=== PATIENT | female | born 1990 | race Caucasian/White ===

== ENCOUNTER 2016-12-27 16:21 | Day surgery (SDC) | payer SELFPAY ==
--- NOTE | 2016-12-27 16:37 | PCM.PREANE ---
Preanesthetic Assessment - Procedure Proposed Procedure: laparoscopic appendectomy - Anesthesia/Transfusion/Family Hx Anesthesia History: Prior Anesthesia Without Reaction ( 2 yr ago in [place]) Other Type of Anesthesia Reaction Comment: states "they had to give me more anesthesia with my c/section" Family History of Anesthesia Reaction: No Transfusion History: No Prior Transfusion(s) Intubation History: Unknown - Review of Systems General: Other (NPO and with abdominal pain) Pulmonary: Other (smoker (limited)) Cardiovascular: No Symptoms Gastrointestinal: Abdominal pain (RLQ) Neurological: No Symptoms Other: Reports: None - Physical Assessment NPO Status Date: 12/26/16 NPO Status Time: 22:00 Height: 4 ft 11 in Weight: 157 lb ASA Class: 2E Mental Status: Alert & Oriented x3 Airway Class: Mallampati = 1 Dentition: Reports: Normal Dentition Thyro-Mental Finger Breadths: 3 Mouth Opening Finger Breadths: 3 ROM/Head Extension: Full Lungs: Clear to auscultation, Normal respiratory effort Cardiovascular: Regular Rate, Regular Rhythm, No Murmurs - Allergies Allergies/Adverse Reactions: Allergies Allergy/AdvReac Type Severity Reaction Status Date / Time No Known Allergies Allergy Verified 02/04/15 09:51 - Blood Blood Available: No Product(s) Available: None - Anesthesia Plan Pre-Op Medication Ordered: None - Acknowledgements Anesthesia Type Planned: General Anesthesia (OET) Pt an Appropriate Candidate for the Planned Anesthesia: Yes Alternatives and Risks of Anesthesia Discussed w Pt/Guardian: Yes Pt/Guardian Understands and Agrees with Anesthesia Plan: Yes PreAnesthesia Questionnaire - Past Health History Medical/Surgical History: Denies Medical/Surgical History Genitourinary History: Reports: None 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 [No Known Home Meds] 12/27/16 [History]
[2016-12-27] MEDS ORDERED: Bupivacaine 0.5% 30 ML SDV ONE (16:40)
[2016-12-27] MEDS ORDERED: ceFAZolin 1 GM Vial ONE (16:40)
[2016-12-27] MEDS ORDERED: Lactated Ringers 1,000 ML IV SCH ×2 (17:00→18:30)
[2016-12-27] MEDS ORDERED: cefOXitin 2 GM in Premix Bag 1 BAG IV ONE (17:07)
[2016-12-27] MEDS ORDERED: Sugammadex Sodium 200 MG/2 ML VIAL IV ONE (18:20)
[2016-12-27] MEDS ORDERED: Acetaminophen/HYDROcodone 325-5 MG Tab PO PRN (18:21)
--- NOTE | 2016-12-27 18:24 | PCM.OPNOTE ---
- General Post-Op/Procedure Note Date of Surgery/Procedure: 12/27/16 Operative Procedure(s): Laparoscopic appendectomy Pre Op Diagnosis: Acute abdomen Post-Op Diagnosis: Acute nonruptured appendicitis Anesthesia Technique: General ET tube (ASA IIE) Primary Surgeon: Khari Ramirez Fluid Replacement, Intraop: 1,500 EBL in mLs: 5 Condition: Good Free Text/Narrative:: Dictation [id number]
[2016-12-27] MEDS ORDERED: Metoclopramide 10 MG/2 ML SDV IVPUSH SCH (18:30)
--- NOTE | 2016-12-27 18:51 | PCM.POSTAN ---
POST ANESTHESIA ASSESSMENT - MENTAL STATUS Mental Status: alert, oriented - RESPIRATORY Respiratory Status: respiratory rate WNL, airway patent, O2 saturation stable - CARDIOVASCULAR CV Status: pulse rate WNL, blood pressure stable - GASTROINTESTINAL GI Status: no symptoms - POST OP HYDRATION Hydration Status: adequate & stable
--- NOTE | 2016-12-27 19:31 | PCM48HPAN ---
Post Anesthesia Note - EVALUATION WITHIN 48HRS OF ANESTHETIC Vital Signs in Normal Range: Yes Patient Participated in Evaluation: Yes Respiratory Function Stable: Yes Airway Patent: Yes Cardiovascular Function Stable: Yes Hydration Status Stable: Yes Pain Control Satisfactory: Yes Nausea and Vomiting Control Satisfactory: Yes Mental Status Recovered: Yes
[2016-12-27] MEDS ORDERED: Acetaminophen/HYDROcodone 325-5 MG Tab ONE (20:50)
[2016-12-27 23:48] VITALS: BP 94/56
--- NOTE | 2016-12-28 00:01 | OR ---
SURGEON: Khari Ramirez M.D. DATE OF PROCEDURE: 12/27/2016 OPERATION PERFORMED: Laparoscopic appendectomy. ANESTHESIA: General endotracheal. ASA CLASSIFICATION: IIE. PREOPERATIVE DIAGNOSIS: Acute abdomen. POSTOPERATIVE DIAGNOSIS: Acute nonruptured appendicitis. ESTIMATED BLOOD LOSS: 5 mL. INTRAOPERATIVE FLUID REPLACEMENT: 1500 mL of crystalloid. DESCRIPTION OF PROCEDURE: The patient was taken to the operating room, placed on the operating table in the supine position. Time-out was called for appropriate identification of the patient and procedure. Thigh-high TEDs and sequential compression boots were placed. Following satisfactory attainment of general endotracheal anesthesia, a Martinez catheter was placed in the patient's urinary bladder. The abdomen was then prepped with DuraPrep solution and sterile drapes were applied. The skin just above the umbilicus was infiltrated with 0.5% Marcaine solution. The skin incision was made and deepened through the subcutaneous tissue. The Veress needle was introduced into the peritoneal cavity. Saline drop test was positive. Following satisfactory attainment of a pneumoperitoneum with the release set at 13 cm of water, the patient was positioned with her head down and rolled to the left. The patient did have adhesions from the previous to the anterior abdominal wall. Therefore, our position for the 12 mm trocar had to be moved superiorly into the right. Once a satisfactory site had been obtained and identified, the skin was infiltrated with 1% Xylocaine and another skin incision was made. Hemostasis obtained again with the use of electrocautery. Under camera vision, the 12 mm port was introduced. The appendix was then identified and was acutely inflamed. However, there was no evidence of rupture of purulent intraperitoneal content. A 5 mm left lower quadrant port was placed again under camera vision with local infiltration of the skin with 0.5% Marcaine solution. The appendix was now grasped and the mesoappendix was taken down with the Harmonic scalpel. Because of involvement of the base of the appendix, it was elected to use an Endo-JOSUÉ stapler with the blue load staple. This was introduced into the peritoneal cavity and positioned around the base of the appendix with care taken not to incorporate the cecum and to identify appropriate position of the tip of the instrument not to include any adjacent organs. The stapler was then fired and the appendix was amputated. It was immediately placed in an Endopouch and secured intraperitoneally. The right lower quadrant was then inspected for hemostasis. No bleeding was noted. The right lower quadrant was irrigated with several 100 mL of sterile saline solution. All fluid was aspirated. The staple line appeared intact and showed no evidence of spill nor any leakage. The patient was now positioned in neutral position. The pelvis was then inspected. I did not see any evidence of pelvic inflammatory disease nor any evidence of an ovarian cyst or blood in the pelvis. The 12 mm port was removed removing the Endopouch containing appendix under camera vision. Again, under camera vision, the 5 mm left lower quadrant port was removed and finally, the supraumbilical camera port was removed. The wounds were inspected for hemostasis. No bleeding was noted. The subcutaneous tissue for the supraumbilical and right lower quadrant port incisions were closed with 3-0 Polysorb. All incisions were closed with subcuticular 4-0 Monocryl and dressed with Steri-Strips and Tegaderm pads. Prior to emergence from anesthesia and extubation, the Martinez catheter was removed. Following emergence from anesthesia and extubation, the patient was taken to the recovery room in satisfactory condition. KAMLA PEACOCK /[id number]
== END 2016-12-27 21:20 | disposition home or self-care (01) ==
LOC: MW.SDS 16:21
PROVIDERS: ATTEND Surgery
PROC: 0DTJ4ZZ Resection of Appendix, Percutaneous Endoscopic Approach (ICD-10-PCS; principal; 2016-12-27)
DX: K35.80 Unspecified acute appendicitis (principal); F17.200 Nicotine dependence, unspecified, uncomplicated; Z79.899 Other long term (current) drug therapy; Z86.59 Personal history of other mental and behavioral disorders; Z98.890 Other specified postprocedural states
CPT/HCPCS: 44970; A9270; 00840; 88304; J0690

== ENCOUNTER 2018-05-22 09:44 | Day surgery (SDC) | payer MEDICAID ==
[~2018-05-22 09:44] MED LIST: Lactated Ringers 1,000 ML IV SCH; Sodium Chloride 0.9% 10 ML Syringe FLUSH PRN; Sodium Chloride 0.9% 2.5 ML Syringe FLUSH PRN; ceFAZolin 1 GM in Premix Bag 1 BAG IV ONE
[2018-05-22] MEDS ORDERED: fentaNYL 250 MCG/5 ML SDV ONE (10:20)
[2018-05-22] MEDS ORDERED: Midazolam 1 MG/ML 2 ML SDV ONE (10:20)
[2018-05-22] MEDS ORDERED: Ondansetron 4 MG/2 ML SDV ONE (10:20)
[2018-05-22] MEDS ORDERED: Propofol 200 MG/20 ML SDV ONE (10:20)
[2018-05-22] MEDS ORDERED: Lidocaine 2% 5 ML SDV ONE (10:20)
[2018-05-22] MEDS ORDERED: Furosemide 40 MG/4 ML VIAL ONE (10:40)
--- NOTE | 2018-05-22 11:11 | PCM.PREANE ---
Preanesthetic Assessment - Procedure Proposed Procedure: Hysteroscopy, D & C - Anesthesia/Transfusion/Family Hx Anesthesia History: Prior Anesthesia Without Reaction Other Type of Anesthesia Reaction Comment: states "they had to give me more anesthesia with my c/section" Family History of Anesthesia Reaction: No Transfusion History: No Prior Transfusion(s) Intubation History: Unknown - Review of Systems General: Fatigue, Other (blood loss due to MAB) Pulmonary: No Symptoms, Other (intermittent smoker) Cardiovascular: No Symptoms Gastrointestinal: No Symptoms Neurological: No Symptoms - Physical Assessment NPO Status Date: 05/21/18 NPO Status Time: 22:00 O2 Sat by Pulse Oximetry: 97 Respiratory Rate: 16 Vital Signs: Last Vital Signs Temp 97.9 F 05/22/18 11:04 Pulse 65 05/22/18 11:04 Resp 16 05/22/18 11:04 BP 103/65 05/22/18 11:04 Pulse Ox 97 05/22/18 11:04 Height: 5 ft Weight: 134 lb ASA Class: 2 Mental Status: Alert & Oriented x3 Airway Class: Mallampati = 2 Dentition: Reports: Normal Dentition Thyro-Mental Finger Breadths: 3 Mouth Opening Finger Breadths: 3 ROM/Head Extension: Full Lungs: Clear to Auscultation, Normal Respiratory Effort Cardiovascular: Regular Rate, Regular Rhythm, No Murmurs - Allergies Allergies/Adverse Reactions: Allergies Allergy/AdvReac Type Severity Reaction Status Date / Time No Known Allergies Allergy Verified 05/17/18 16:21 - Blood Blood Available: Yes Product(s) Available: PRBC (T and S) - Anesthesia Plan Pre-Op Medication Ordered: None - Acknowledgements Anesthesia Type Planned: General Anesthesia (LMA vs OET) Pt an Appropriate Candidate for the Planned Anesthesia: Yes Alternatives and Risks of Anesthesia Discussed w Pt/Guardian: Yes Pt/Guardian Understands and Agrees with Anesthesia Plan: Yes PreAnesthesia Questionnaire - Past Health History Medical/Surgical History: Denies Medical/Surgical History HEENT History: Reports: Other (See Below) Other HEENT History: wears glasses Cardiovascular History: Reports: None Respiratory History: Reports: None Gastrointestinal History: Reports: None Genitourinary History: Reports: None 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 (See Below) Other OB/BYN History: recent miscarriage Musculoskeletal History: Reports: None Neurological History: Reports: None Psychiatric History: Reports: None Endocrine/Metabolic History: Reports: None Hematologic History: Reports: None Immunologic History: Reports: None Oncologic (Cancer) History: Reports: None Dermatologic History: Reports: None - Past Surgical History Head Surgeries/Procedures: Reports: None GI Surgical History: Reports: Appendectomy Female Surgical History: Reports: Section - SUBSTANCE USE Smoking Status *Q: Current Some Day Smoker Tobacco Use Within Last Twelve Months: Cigarettes Recreational Drug Use History: No - HOME MEDS Home Medications: Home Meds Doxycycline [Vibramycin] 100 mg PO BID 05/17/18 [History] - CURRENT (IN HOUSE) MEDS Current Meds: Current Medications Lactated Ringer's (Ringers, Lactated) 1,000 mls @ 125 mls/hr IV ASDIRECTED [facility]IAN[facility] Sodium Chloride (Saline Flush) 10 ml FLUSH ASDIRECTED PRN PRN Reason: Keep Vein Open Sodium Chloride (Saline Flush) 2.5 ml FLUSH ASDIRECTED PRN PRN Reason: Keep Vein Open Discontinued Medications Fentanyl (Sublimaze) Confirm Administered Dose 250 mcg .ROUTE .STK-MED ONE Stop: 05/22/18 10:21 Furosemide (Lasix) Confirm Administered Dose 40 mg .ROUTE .STK-MED ONE Stop: 05/22/18 10:41 Cefazolin Sodium/Dextrose 1 gm (/ Premix) 50 mls @ 100 mls/hr IV ONETIME ONE Stop: 05/22/18 09:29 Lidocaine (Xylocaine-Mpf 2%) Confirm Administered Dose 5 ml .ROUTE .STK-MED ONE Stop: 05/22/18 10:21 Midazolam HCl (Versed 1 Mg/Ml) Confirm Administered Dose 2 mg .ROUTE .STK-MED ONE Stop: 05/22/18 10:21 Ondansetron HCl (Zofran) Confirm Administered Dose 4 mg .ROUTE .STK-MED ONE Stop: 05/22/18 10:21 Propofol (Diprivan 20 Ml) Confirm Administered Dose 200 mg .ROUTE .STK-MED ONE Stop: 05/22/18 10:21
[2018-05-22] MEDS ORDERED: Ketorolac 30 MG/ML SDV ONE (13:06)
[2018-05-22] MEDS ORDERED: Rocuronium 10 MG/ML 10 ML Syringe ONE (13:26)
[2018-05-22] MEDS ORDERED: ePHEDrine 50 MG/ML SDV ONE (13:50)
[2018-05-22] MEDS ORDERED: Sugammadex Sodium 200 MG/2 ML VIAL ONE (14:10)
[2018-05-22] MEDS ORDERED: fentaNYL 100 MCG/2 ML SDV IVPUSH PRN (14:45)
[2018-05-22] MEDS ORDERED: fentaNYL 100 MCG/2 ML SDV ONE (15:28)
[2018-05-22] MEDS ORDERED: Bupivacaine 0.5% 30 ML SDV ONE (15:49)
[2018-05-22] MEDS ORDERED: Lactated Ringers 1,000 ML IV SCH (16:00)
--- NOTE | 2018-05-22 16:15 | PCM.OPNOTE ---
- General Post-Op/Procedure Note Date of Surgery/Procedure: 05/22/18 Operative Procedure(s): 1) Hysteroscopy with removal of retained products. 2) Diagnostic Laparoscopy Findings: Accurate appearing uterus. Suspected products of conception located within the right cornua and the posterior uterine wall. Posterior uterine wall perforation located towards the right cornua- hemostatic. Surgicell placed over the area. No bowl injury or perforation visualized by Dr Gardner who ran the bowl laparoscopically. Please refer to her documentation for details Pre Op Diagnosis: 1) Suspected retained Products of conception following 15 weeks spontaneous misscarriage Post-Op Diagnosis: Same. 2) Uterine perforation Anesthesia Technique: General ET Tube Primary Surgeon: Morelia Qiuntana Optical Worker: Hill Pathology: Products of conception Suspected Bowel Epipolic Fluid Replacement, Intraop: 3,100 Output, Urine Amount: 200 EBL in mLs: 80 Complications: see above Condition: Good Free Text/Narrative:: Intraoperative consult by Dr Gardner
--- NOTE | 2018-05-22 16:20 | PCM.POSTAN ---
POST ANESTHESIA ASSESSMENT - MENTAL STATUS Mental Status: Alert, Oriented - RESPIRATORY Respiratory Status: Respiratory Rate WNL, Airway Patent, O2 Saturation Stable - CARDIOVASCULAR CV Status: Pulse Rate WNL, Blood Pressure Stable - GASTROINTESTINAL GI Status: No Symptoms - PAIN Pain Score: 4 (fentanyl given in PAR) - POST OP HYDRATION Hydration Status: Adequate & Stable
--- NOTE | 2018-05-22 16:35 | PCM48HPAN ---
Post Anesthesia Note - EVALUATION WITHIN 48HRS OF ANESTHETIC Vital Signs in Normal Range: Yes Patient Participated in Evaluation: Yes Respiratory Function Stable: Yes Airway Patent: Yes Cardiovascular Function Stable: Yes Hydration Status Stable: Yes Pain Control Satisfactory: Yes Nausea and Vomiting Control Satisfactory: Yes Mental Status Recovered: Yes Resp Rate: 14
[2018-05-22] MEDS: Acetaminophen/oxyCODONE 325-5 MG Tab PO PRN (17:31)
--- NOTE | 2018-05-22 17:39 | OR ---
SURGEON: GILMER NUNEZ MD DATE OF PROCEDURE: 05/22/2018 PROCEDURE IN DETAIL: I was called to the operating room due to a uterine perforation during a D & C. During the procedure fat was noticed on the curette. The case was stopped and the c web developer placed an infraumbilical and left lower quadrant 5 mm port. I was intraoperatively consulted and entered the case at this point in time. Using a 5 mm 30-degree scope, I looked underneath the uterus. There had been bleeding associated with the perforation but a piece of surgicel was on the posterior fundus of the uterus and the field was hemostatic. There was a small piece of traumatized fat attached to the rectum. This correlated with the area of perforation in the uterus. I closely inspected the rectum to the pelvic floor. There was no evidence of fecal contamination or gross perforation of the rectal wall. Using atraumatic graspers, I inspected the rectum on all sides. There was no evidence of any damage. I then inspected the sigmoid colon as it came out of the pelvis. This appeared to be intact with no evidence of perforation. I examined the remainder of the colon and the abdominal organs. They appeared normal. A 5 mm port was placed under direct visualization in the left upper quadrant to allow me to run the small bowel. I identified the cecum and terminal ileum. The small bowel was run in hand over hand fashion from distal to proximal until I was proximal to the ligament of Treitz. No damage to the small bowel or its mesentery was identified. I then broke sterile, went below the drapes and turned my attention to the anus. A digital rectal exam was performed. This exam was normal. I could see myself palpating the rectum via the laparoscope. My finger was able to reach the area of traumatized epiploia. The rectal vault had no stool in it. I then placed a well lubricated bivalve proctoscope into the rectum. The rectal mucosa appeared healthy with no signs of perforation. There was no evidence of any bleeding. I copiously irrigated the rectum. There was no evidence of irrigant fluid going into the pelvis. After this thorough inspection, it was conculded that there was no evidence any damage to any other intra-abdominal organs other than a small traumatized piece of emani-rectal fat. Please see Dr. Quintana's note for further details in the case. KIM / AYUSH /[id number] BARON
[2018-05-22] MEDS ORDERED: Ondansetron 4 MG/2 ML SDV IVPUSH PRN (18:54)
--- NOTE | 2018-05-22 19:57 | PCM.SURGPN ---
- General Info Date of Service: 05/22/18 POD#: 0 Functional Status: Reports: Pain Controlled, Tolerating Diet, Urinating - Review of Systems General: Denies: Fever, Fatigue, Chills HEENT: Denies: Headaches Pulmonary: Denies: Shortness of Breath, Pleuritic Chest Pain Cardiovascular: Denies: Chest Pain, Palpitations, Dyspnea on Exertion Gastrointestinal: Denies: Abdominal Pain Genitourinary: Denies: Dysuria, Flank Pain - Patient Data Vitals - Most Recent: Last Vital Signs Temp 36.8 C 05/22/18 18:03 Pulse 63 05/22/18 18:03 Resp 12 05/22/18 18:03 BP 100/61 05/22/18 18:03 Pulse Ox 100 05/22/18 18:03 Weight - Most Recent: 134 lb I&O - Last 24 Hours: Intake & Output 05/22/18 05/22/18 05/22/18 06:59 14:59 22:59 Intake Total 6800 Output Total 400 Balance 6400 Lab Results Last 24 Hrs: Laboratory Results - last 24 hr 05/22/18 05/22/18 Range/Units 10:46 10:46 WBC 4.89 (4.0-11.0) K/uL RBC 3.92 L (4.30-5.90) M/uL Hgb 11.9 L (12.0-16.0) g/dL Hct 34.6 L (36.0-46.0) % MCV 88.3 (80.0-98.0) fL MCH 30.4 (27.0-32.0) pg MCHC 34.4 (31.0-37.0) g/dL RDW Std Deviation 42.8 (28.0-62.0) fl RDW Coeff of Karan 13 (11.0-15.0) % Plt Count 220 (150-400) K/uL MPV 11.50 (7.40-12.00) fL Nucleated RBC % 0.0 /100WBC Nucleated RBCs # 0 K/uL Blood Type A POSITIVE Antibody Screen NEGATIVE Med Orders - Current: Current Medications Fentanyl (Sublimaze) 50 mcg IVPUSH .Q5MIN PRN PRN Reason: Pain Cefazolin Sodium/Dextrose 1 gm (/ Premix) 50 mls @ 100 mls/hr IV Q8H MARIANNE Stop: 05/23/18 04:29 Lactated Ringer's (Ringers, Lactated) 1,000 mls @ 125 mls/hr IV ASDIRECTED [facility] Last Admin: 05/22/18 18:01 Dose: 125 mls/hr Ketorolac Tromethamine (Toradol) 30 mg IVPUSH Q8H [facility] Stop: 05/23/18 05:01 Ondansetron HCl (Zofran) 4 mg IVPUSH Q4H PRN PRN Reason: Vomiting Last Admin: 05/22/18 19:36 Dose: 4 mg Oxycodone/Acetaminophen (Percocet 325-5 Mg) 1 tab PO Q4H PRN PRN Reason: Pain Last Admin: 05/22/18 17:31 Dose: 1 tab Polyethylene Glycol (Miralax) 17 gm PO BID [facility] Discontinued Medications Bupivacaine HCl (Marcaine 0.5%) Confirm Administered Dose 30 ml .ROUTE .STK-MED ONE Stop: 05/22/18 15:50 Ephedrine Sulfate (Ephedrine Sulfate) Confirm Administered Dose 50 mg .ROUTE .STK-MED ONE Stop: 05/22/18 13:51 Fentanyl (Sublimaze) Confirm Administered Dose 250 mcg .ROUTE .STK-MED ONE Stop: 05/22/18 10:21 Fentanyl (Sublimaze) Confirm Administered Dose 100 mcg .ROUTE .STK-MED ONE Stop: 05/22/18 15:29 Furosemide (Lasix) Confirm Administered Dose 40 mg .ROUTE .STK-MED ONE Stop: 05/22/18 10:41 Cefazolin Sodium/Dextrose 1 gm (/ Premix) 50 mls @ 100 mls/hr IV ONETIME ONE Stop: 05/22/18 09:29 Last Admin: 05/22/18 17:48 Dose: Not Given Lactated Ringer's (Ringers, Lactated) 1,000 mls @ 125 mls/hr IV ASDIRECTED [facility] Last Admin: 05/22/18 10:40 Dose: 125 mls/hr Ketorolac Tromethamine (Toradol) Confirm Administered Dose 30 mg .ROUTE .STK- MED ONE Stop: 05/22/18 13:07 Lidocaine (Xylocaine-Mpf 2%) Confirm Administered Dose 5 ml .ROUTE .STK-MED ONE Stop: 05/22/18 10:21 Midazolam HCl (Versed 1 Mg/Ml) Confirm Administered Dose 2 mg .ROUTE .STK-MED ONE Stop: 05/22/18 10:21 Ondansetron HCl (Zofran) Confirm Administered Dose 4 mg .ROUTE .STK-MED ONE Stop: 05/22/18 10:21 Propofol (Diprivan 20 Ml) Confirm Administered Dose 200 mg .ROUTE .STK-MED ONE Stop: 05/22/18 10:21 Rocuronium [place] (Zemuron) Confirm Administered Dose 100 mg .ROUTE .STK-MED ONE Stop: 05/22/18 13:27 Sodium Chloride (Saline Flush) 10 ml FLUSH ASDIRECTED PRN PRN Reason: Keep Vein Open Sodium Chloride (Saline Flush) 2.5 ml FLUSH ASDIRECTED PRN PRN Reason: Keep Vein Open Sugammadex Sodium ([place]) Confirm Administered Dose 200 mg .ROUTE .STK-MED ONE Stop: 05/22/18 14:11 - Exam Wound/Incisions: Dressing Dry and Intact General: Alert, Oriented HEENT: Pupils Equal Lungs: Clear to Auscultation, Normal Respiratory Effort Cardiovascular: Regular Rate, Regular Rhythm GI/Abdominal Exam: Normal Bowel Sounds, Soft, Non-Tender Skin: Warm Psy/Mental Status: Alert, Normal Affect, Normal Mood - Problem List & Annotations (1) Retained products of conception after miscarriage SNOMED Code(s): 215871586 Code(s): O03.4 - INCOMPLETE SPONTANEOUS WITHOUT COMPLICATION Status: Acute Current Visit: Yes (2) Uterine perforation SNOMED Code(s): 3861147 Code(s): S37.69XA - OTHER INJURY OF UTERUS, INITIAL ENCOUNTER Status: Acute Current Visit: Yes Qualifiers: Encounter type: initial encounter Qualified Code(s): S37.69XA - Other injury of uterus, initial encounter (3) Status post hysteroscopy SNOMED Code(s): 496159877 Code(s): Z98.890 - OTHER SPECIFIED POSTPROCEDURAL STATES Status: Acute Current Visit: Yes (4) S/P laparoscopic procedure SNOMED Code(s): 986818834, 362665732, 650552408 Code(s): Z98.890 - OTHER SPECIFIED POSTPROCEDURAL STATES Status: Acute Current Visit: Yes - Problem List Review Problem List Initiated/Reviewed/Updated: Yes - My Orders Last 24 Hours: Active Orders 24 hr Category Date Time Status Patient Status [ADT] Routine ADT 05/22/18 16:00 Active Intake and Output [RC] Q12H Care 05/22/18 15:59 Active Procedure Prep Instructions [RC] PER UNIT ROUTINE Care 05/22/18 09:00 Inactive Procedure Site Prep Instruct [RC] PER UNIT ROUTINE Care 05/22/18 09:00 Inactive Up With Assistance [RC] PER UNIT ROUTINE Care 05/22/18 16:05 Active Verify Patient Consent Obtain [RC] PER UNIT ROUTINE Care 05/22/18 09:00 Inactive Vital Signs [RC] PER UNIT ROUTINE Care 05/22/18 09:00 Inactive Vital Signs [RC] Q4HR Care 05/22/18 15:59 Active Regular Diet [DIET] Diet 05/22/18 Dinner Active Acetaminophen/oxyCODONE [Percocet 325-5 MG] Med 05/22/18 15:59 Active 1 tab PO Q4H PRN Ketorolac [Toradol] Med 05/22/18 21:00 Active 30 mg IVPUSH Q8H Lactated Ringers [Ringers, Lactated] 1,000 ml Med 05/22/18 16:00 Active IV ASDIRECTED Ondansetron [Zofran] Med 05/22/18 18:54 Active 4 mg IVPUSH Q4H PRN Polyethylene Glycol 3350 [MiraLAX] Med 05/22/18 21:00 Active 17 gm PO BID ceFAZolin [Ancef] 1 gm Med 05/22/18 20:00 Active Premix Bag 1 bag IV Q8H fentaNYL [Sublimaze] Med 05/22/18 14:45 Active 50 mcg IVPUSH .Q5MIN PRN Resuscitation Status Routine Resus Stat 05/22/18 15:59 Ordered Medication Orders Fentanyl (Sublimaze) 50 mcg IVPUSH .Q5MIN PRN PRN Reason: Pain Cefazolin Sodium/Dextrose 1 gm (/ Premix) 50 mls @ 100 mls/hr IV Q8H [facility]IANNE Stop: 05/23/18 04:29 Lactated Ringer's (Ringers, Lactated) 1,000 mls @ 125 mls/hr IV ASDIRECTED MARIANNE Last Admin: 05/22/18 18:01 Dose: 125 mls/hr Ketorolac Tromethamine (Toradol) 30 mg IVPUSH Q8H [facility]IANNE Stop: 05/23/18 05:01 Ondansetron HCl (Zofran) 4 mg IVPUSH Q4H PRN PRN Reason: Vomiting Last Admin: 05/22/18 19:36 Dose: 4 mg Oxycodone/Acetaminophen (Percocet 325-5 Mg) 1 tab PO Q4H PRN PRN Reason: Pain Last Admin: 05/22/18 17:31 Dose: 1 tab Polyethylene Glycol (Miralax) 17 gm PO BID MARIANNE - Assessment Assessment (Free Text/Narrative):: POD#0 s/o hystroscopy with retrieval of RPOC, complicated by uterine perforation s/p diagnostic laparoscopy Patient is doing well Details of surgical events were explained to patient. Her questions were answered - Plan Plan (Free Text/Narrative):: Saline lock. Continue PO Zofran for N/V PRN Continue scheduled Abx and Toradaol x 2 more doses. Continue routine postop care
[2018-05-22] MEDS: Ketorolac 30 MG/ML SDV IVPUSH SCH (20:36)
[2018-05-22] MEDS: ceFAZolin 1 GM in Premix Bag 1 BAG IV SCH (20:46)
[2018-05-22] MEDS: Polyethylene Glycol 3350 Powder 17 GM Packet PO SCH (20:48)
[2018-05-23] MEDS: ceFAZolin 1 GM in Premix Bag 1 BAG IV SCH (04:14)
[2018-05-23] MEDS: Ketorolac 30 MG/ML SDV IVPUSH SCH (04:16)
[2018-05-23] MEDS: Polyethylene Glycol 3350 Powder 17 GM Packet PO SCH (08:07)
[2018-05-23 08:20] VITALS: BP 97/51
--- NOTE | 2018-05-23 08:34 | OR ---
SURGEON: Morelia Quintana MD INTRA-OP CONSULTATION: Viky Gardner MD, general surgeon. PHOTO EDITOR: Dominic Alejandre MS IV DATE OF PROCEDURE: 05/22/2018 PREOPERATIVE DIAGNOSIS: Retained products of conception after spontaneous miscarriage at 15 weeks' gestation. POSTOPERATIVE DIAGNOSES: 1. Retained products of conception after spontaneous miscarriage at 15 weeks' gestation. 2. Uterine perforation. PROCEDURE PERFORMED: 1. Operative hysteroscopy with retrieval of retained products of conception and Dilatation with curettage. 2. Diagnostic laparoscopy. ANESTHESIA: General endotracheal. ESTIMATED BLOOD LOSS: Less than 100 mL. COMPLICATIONS: See above. DISPOSITION: Stable to recovery room. PATHOLOGY: 1. Retained products of conception. 2. 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 No adnexal masses palpable. Hysteroscopic findings revealed accurate appearing uterine fundus. Left fallopian tube ostium was visualized. Towards the right corner was suspected products of conception, which were adherent to the lateral and posterior uterine lozano on that side, obscuring the right fallopian tube ostium. Laparoscopic findings revealed a non mobile uterus with the anterior wall densely adherent to the anterior abdominal wall and the bladder.There was a hemostatic right posterior uterine wall perforation, approximately 0.5 cm. The left ovary was adherent to the sigmoid colon and there was also small bowel adherent to the right side wall. The bowel was ran laparoscopically by Dr. Gardner with no evidence of bowel perforation visualized. Please refer to her documentation for details of the procedure. BRIEF HISTORY: The patient is a 28-year-old G2, P1-0-1-1, who had a spontaneous miscarriage at 15 weeks' gestation, she delivered at [facility] approximately four weeks ago. She presented for an appointment with complaints of continual bleeding with varied intensity since delivery associated with abdominal cramps.She denied fever or chills. Her ultrasound showed possible retained products of conception. Management options were discussed with the patient and given the fact that this was 4 weeks post delivery, and consented to proceed with surgical management. Appropriate consent was obtained and explaining the risks of the procedure including, but not limited to bleeding, infection, uterine perforation with injury to all surrounding organs, risk of fluid overload, and risk of thromboembolism and anesthesia risk was also discussed. DESCRIPTION OF PROCEDURE: The patient was taken to the operating room, where she underwent induction of general anesthesia without difficulty. She was then placed in dorsal lithotomy position, prepped and draped in the usual sterile fashion for vaginal procedure. The bladder was emptied. Time out was held and 2grams of Ancef was given. Examination under anesthesia revealed the aforementioned findings. A bivalve speculum was placed into the vagina, but the cervix was not visualized properly. So, a weighted speculum was placed in the posterior fornix and then a right angle retractor was used to retract the anterior wall of the vagina. The patient was placed in Trendelenburg facilitating visualization of the cervix, the anterior lip of the cervix was grabbed with a single-tooth tenaculum. The uterine cavity was sounded up to 7 cm. The os serially dilated easily up to #6 Hegar dilator and a 6.5 mm MyoSure hysteroscope was inserted into the uterine cavity under direct visualization using normal saline as distention media. Upon entering the cavity, the aforementioned pathology was noted. The outflow channel of the MyoSure was then removed and under direct visualization and the Myosure tissue retrieval device was introduced via this channel. The cutting window of the device was aligned along the observed tissue which was retrieved .Once this was performed, the scope was removed and curettage was then performed. Once I retrieved the tissue from the curettage, I noticed a yellowish fatty tissue, which made me suspect that the perforation of the uterine wall had occurred. I then replaced the MyoSure laparoscope back into the uterine cavity. I was able to visualize the cavity, but I was unable to visualize any site of perforation. Given the fact that the yellow fatty tissue was highly suspicious for an omentum or an epiploic bowel, I decided to perform a diagnostic laparoscopy for further evaluation. The patient was then taken out of the Trendelenburg, the drapes were removed, and then abdomen was prepped for laparoscopic surgery and she was re-draped in a sterile fashion. No uterine manipulator was placed in the uterus, rather used the sponge stick was placed vaginally to aid manipulation. Mechanical Maintenance Foreman's gloves were changed and attention was turned to her abdomen. The umbilical fold was infiltrated with 0.25% Marcaine and a 5 mm skin incision was made with the scalpel. The Veress needle was then introduced into the abdominal cavity with an opening pressure of 6 mmHg. Pneumoperitoneum was then developed with CO2 gas up to 13 mmHg. A 5 mm port was introduced into the peritoneal cavity and the correct placement was confirmed with a 5 mm laparoscope. Upon entering the abdominal cavity, bloody fluid was noted in the pelvis. The patient was placed in steep Trendelenburg, the bowels were moved away from the pelvis. A second port, 5mm was placed in the left lower quadrant under direct visualization after the skin had been infiltrated with 0.25% Marcaine. Once this port was placed, I was able to use atraumatic grasper to move away the bowel further from the pelvis and the fluid was suctioned out . Once all the fluid has been suctioned out, I systematic evaluated the uterus was performed and the noticed right posterior wall perforation which was located towards the right cornua, corresponding to where products of conceptions were noted hysteroscopically, the area was hemostatic. I did notice a bruised area on the epiploia of the rectum located directly below the uterine perforation. I placed a piece of Surgicel over the site of the uterine perforation and I called in for intra-op consult with the general surgeon,Dr. Gardner. She came in and placed a second port in the patient's left upper quadrant and then ran the entire bowel laparoscopically. Please refer to her surgical notes for the details of her procedure. After she had confirmed that there were no bowel injury noted, I proceeded to complete laparoscopy. Irrigation was performed and the gas was released, then the instruments and ports were removed under direct visualization. The skin was closed with subcutaneous stitches using 4-0 Monocryl. All sponge, instrument, and needle counts were correct at the end of the procedure. The patient was taken to the recovery room in a stable condition. NAEEM / AYUSH /[id number] MTDD
--- NOTE | 2018-05-23 09:12 | PCM.SURGPN ---
- General Info Date of Service: 05/23/18 POD#: 1 Functional Status: Reports: Pain Controlled, Tolerating Diet, Ambulating, Urinating, Other (scant vaginal bleeding) - Review of Systems General: Denies: Fever HEENT: Denies: Headaches Pulmonary: Denies: Shortness of Breath, Pleuritic Chest Pain Cardiovascular: Denies: Chest Pain, Palpitations, Dyspnea on Exertion Gastrointestinal: Reports: Flatus. Denies: Abdominal Pain Genitourinary: Denies: Dysuria - Patient Data Vitals - Most Recent: Last Vital Signs Temp 36.4 C 05/23/18 08:00 Pulse 76 05/23/18 08:00 Resp 16 05/23/18 08:00 BP 97/51 L 05/23/18 08:00 Pulse Ox 98 05/23/18 08:00 Weight - Most Recent: 134 lb I&O - Last 24 Hours: Intake & Output 05/22/18 05/23/18 05/23/18 22:59 06:59 14:59 Intake Total 6800 520 Output Total 400 2450 Balance 6400 -1930 Lab Results Last 24 Hrs: Laboratory Results - last 24 hr 05/22/18 05/22/18 05/23/18 Range/Units 10:46 10:46 04:50 WBC 4.89 5.47 (4.0-11.0) K/uL RBC 3.92 L 3.11 L (4.30-5.90) M/uL Hgb 11.9 L 9.3 L (12.0-16.0) g/dL Hct 34.6 L 27.8 L (36.0-46.0) % MCV 88.3 89.4 (80.0-98.0) fL MCH 30.4 29.9 (27.0-32.0) pg MCHC 34.4 33.5 (31.0-37.0) g/dL RDW Std Deviation 42.8 43.1 (28.0-62.0) fl RDW Coeff of Karan 13 13 (11.0-15.0) % Plt Count 220 155 (150-400) K/uL MPV 11.50 11.90 (7.40-12.00) fL Nucleated RBC % 0.0 0.0 /100WBC Nucleated RBCs # 0 0 K/uL Blood Type A POSITIVE Antibody Screen NEGATIVE Med Orders - Current: Current Medications Fentanyl (Sublimaze) 50 mcg IVPUSH .Q5MIN PRN PRN Reason: Pain Lactated Ringer's (Ringers, Lactated) 1,000 mls @ 125 mls/hr IV ASDIRECTED [facility] Last Admin: 05/22/18 18:01 Dose: 125 mls/hr Ondansetron HCl (Zofran) 4 mg IVPUSH Q4H PRN PRN Reason: Vomiting Last Admin: 05/22/18 19:36 Dose: 4 mg Oxycodone/Acetaminophen (Percocet 325-5 Mg) 1 tab PO Q4H PRN PRN Reason: Pain Last Admin: 05/22/18 17:31 Dose: 1 tab Polyethylene Glycol (Miralax) 17 gm PO BID [facility] Last Admin: 05/23/18 08:07 Dose: 17 gm Discontinued Medications Bupivacaine HCl (Marcaine 0.5%) Confirm Administered Dose 30 ml .ROUTE .STK-MED ONE Stop: 05/22/18 15:50 Ephedrine Sulfate (Ephedrine Sulfate) Confirm Administered Dose 50 mg .ROUTE .STK-MED ONE Stop: 05/22/18 13:51 Fentanyl (Sublimaze) Confirm Administered Dose 250 mcg .ROUTE .STK-MED ONE Stop: 05/22/18 10:21 Fentanyl (Sublimaze) Confirm Administered Dose 100 mcg .ROUTE .STK-MED ONE Stop: 05/22/18 15:29 Furosemide (Lasix) Confirm Administered Dose 40 mg .ROUTE .STK-MED ONE Stop: 05/22/18 10:41 Cefazolin Sodium/Dextrose 1 gm (/ Premix) 50 mls @ 100 mls/hr IV ONETIME ONE Stop: 05/22/18 09:29 Last Admin: 05/22/18 17:48 Dose: Not Given Lactated Ringer's (Ringers, Lactated) 1,000 mls @ 125 mls/hr IV ASDIRECTED [facility] Last Admin: 05/22/18 10:40 Dose: 125 mls/hr Cefazolin Sodium/Dextrose 1 gm (/ Premix) 50 mls @ 100 mls/hr IV Q8H [facility] Stop: 05/23/18 04:29 Last Admin: 05/23/18 04:14 Dose: 100 mls/hr Ketorolac Tromethamine (Toradol) Confirm Administered Dose 30 mg .ROUTE .STK- MED ONE Stop: 05/22/18 13:07 Ketorolac Tromethamine (Toradol) 30 mg IVPUSH Q8H [facility] Stop: 05/23/18 05:01 Last Admin: 05/23/18 04:16 Dose: 30 mg Lidocaine (Xylocaine-Mpf 2%) Confirm Administered Dose 5 ml .ROUTE .STK-MED ONE Stop: 05/22/18 10:21 Midazolam HCl (Versed 1 Mg/Ml) Confirm Administered Dose 2 mg .ROUTE .STK-MED ONE Stop: 05/22/18 10:21 Ondansetron HCl (Zofran) Confirm Administered Dose 4 mg .ROUTE .STK-MED ONE Stop: 05/22/18 10:21 Propofol (Diprivan 20 Ml) Confirm Administered Dose 200 mg .ROUTE .STK-MED ONE Stop: 05/22/18 10:21 Rocuronium Purdon (Zemuron) Confirm Administered Dose 100 mg .ROUTE .STK-MED ONE Stop: 05/22/18 13:27 Sodium Chloride (Saline Flush) 10 ml FLUSH ASDIRECTED PRN PRN Reason: Keep Vein Open Sodium Chloride (Saline Flush) 2.5 ml FLUSH ASDIRECTED PRN PRN Reason: Keep Vein Open Sugammadex Sodium (Bridion) Confirm Administered Dose 200 mg .ROUTE .STK-MED ONE Stop: 05/22/18 14:11 - Exam Wound/Incisions: Dressing Dry and Intact General: Alert, Oriented Lungs: Clear to Auscultation, Normal Respiratory Effort Cardiovascular: Regular Rate, Regular Rhythm GI/Abdominal Exam: Normal Bowel Sounds, Soft, Non-Tender Extremities: Non-Tender, No Pedal Edema Skin: Warm Psy/Mental Status: Alert, Normal Affect, Normal Mood - Problem List & Annotations (1) Retained products of conception after miscarriage SNOMED Code(s): 633049136 Code(s): O03.4 - INCOMPLETE SPONTANEOUS WITHOUT COMPLICATION Status: Acute Current Visit: Yes (2) Uterine perforation SNOMED Code(s): 2849590 Code(s): S37.69XA - OTHER INJURY OF UTERUS, INITIAL ENCOUNTER Status: Acute Current Visit: Yes Qualifiers: Encounter type: initial encounter Qualified Code(s): S37.69XA - Other injury of uterus, initial encounter (3) Status post hysteroscopy SNOMED Code(s): 236470860 Code(s): Z98.890 - OTHER SPECIFIED POSTPROCEDURAL STATES Status: Acute Current Visit: Yes (4) S/P laparoscopic procedure SNOMED Code(s): 041431888, 836906210, 906855361 Code(s): Z98.890 - OTHER SPECIFIED POSTPROCEDURAL STATES Status: Acute Current Visit: Yes - Problem List Review Problem List Initiated/Reviewed/Updated: Yes - My Orders Last 24 Hours: Active Orders 24 hr Category Date Time Status Patient Status [ADT] Routine ADT 05/22/18 16:00 Active Intake and Output [RC] Q12H Care 05/22/18 15:59 Active Procedure Prep Instructions [RC] PER UNIT ROUTINE Care 05/22/18 09:00 Inactive Procedure Site Prep Instruct [RC] PER UNIT ROUTINE Care 05/22/18 09:00 Inactive Up With Assistance [RC] PER UNIT ROUTINE Care 05/22/18 16:05 Active Verify Patient Consent Obtain [RC] PER UNIT ROUTINE Care 05/22/18 09:00 Inactive Vital Signs [RC] PER UNIT ROUTINE Care 05/22/18 09:00 Inactive Vital Signs [RC] Q4HR Care 05/22/18 15:59 Active Regular Diet [DIET] Diet 05/22/18 Dinner Active Acetaminophen/oxyCODONE [Percocet 325-5 MG] Med 05/22/18 15:59 Active 1 tab PO Q4H PRN Lactated Ringers [Ringers, Lactated] 1,000 ml Med 05/22/18 16:00 Active IV ASDIRECTED Ondansetron [Zofran] Med 05/22/18 18:54 Active 4 mg IVPUSH Q4H PRN Polyethylene Glycol 3350 [MiraLAX] Med 05/22/18 21:00 Active 17 gm PO BID fentaNYL [Sublimaze] Med 05/22/18 14:45 Active 50 mcg IVPUSH .Q5MIN PRN Resuscitation Status Routine Resus Stat 05/22/18 15:59 Ordered Medication Orders Fentanyl (Sublimaze) 50 mcg IVPUSH .Q5MIN PRN PRN Reason: Pain Lactated Ringer's (Ringers, Lactated) 1,000 mls @ 125 mls/hr IV ASDIRECTED [facility] Last Admin: 05/22/18 18:01 Dose: 125 mls/hr Ondansetron HCl (Zofran) 4 mg IVPUSH Q4H PRN PRN Reason: Vomiting Last Admin: 05/22/18 19:36 Dose: 4 mg Oxycodone/Acetaminophen (Percocet 325-5 Mg) 1 tab PO Q4H PRN PRN Reason: Pain Last Admin: 05/22/18 17:31 Dose: 1 tab Polyethylene Glycol (Miralax) 17 gm PO BID [facility] Last Admin: 05/23/18 08:07 Dose: 17 gm Admin: 05/22/18 20:48 Dose: 17 gm - Assessment Assessment (Free Text/Narrative):: POD#1 s/p hysteroscopy, complicated with a uterine perforation s/p diagnostic laparoscopy She is doing this morning and has no concerns Ambulating and tolerating diet this morning She is stable for discharge - Plan Plan (Free Text/Narrative):: Discharge instructions reviewed Nothing in the vagina for 2weeks Bleeding and infection precautions weer given Continue OTC pains meds. Will also prescribe percocet for a 1 day. Continue Miralax for next 3 days May slowly increase activity Follow in 2 weeks Call with any concerns
[2018-05-23] MEDS: Acetaminophen/oxyCODONE 325-5 MG Tab PO PRN (11:17)
== END 2018-05-23 11:24 | disposition home or self-care (01) ==
LOC: MW.SDS 09:44 → MW.MS 16:00 → UNDOADMOB 16:00 → MW.SDS 05-23 11:24
PROVIDERS: ATTEND Obstetrics & Gynecology
DX: O03.34 Damage to pelvic organs following incomplete spontaneous abortion (principal); F17.210 Nicotine dependence, cigarettes, uncomplicated; Z87.891 Personal history of nicotine dependence
CPT/HCPCS: 36415; 49320; 59812; 85027; 86850; 86900; 86901; A9270; J0690; J1885; J1940; J2250; J2405; J2704; J3010; J3490; J7120

== ENCOUNTER 2020-08-17 05:11 | Inpatient (IN) | payer MEDICAID ==
[2020-08-17] MEDS ORDERED: Sodium Chloride 0.9% 10 ML SDV IV PRN (06:22)
[2020-08-17] MEDS ORDERED: Sodium Chloride 0.9% 2.5 ML Syringe FLUSH PRN (06:22)
[2020-08-17] MEDS ORDERED: ceFAZolin 2 GM in Premix Bag 1 BAG IV ONE (06:22)
[2020-08-17] MEDS ORDERED: Citric Acid/Sodium Citrate Solution 30 ML Cup PO ONE (06:22)
[2020-08-17] MEDS ORDERED: Sodium Chloride 0.9% 10 ML Syringe FLUSH PRN (06:22)
[2020-08-17] MEDS ORDERED: Lactated Ringers 1,000 ML IV SCH ×2 (06:30→09:00)
[2020-08-17] MEDS ORDERED: Oxytocin/0.9 % Sodium Chloride 30 UNIT/500 ML BAG IV SCH (06:30)
[2020-08-17] MEDS ORDERED: Morphine PF 10 MG/10 ML SDV ONE (07:14)
[2020-08-17] MEDS ORDERED: Oxytocin 10 Units/1 ML SDV ONE (07:17)
[2020-08-17] MEDS ORDERED: Phenylephrine 1% 10 MG/ML SDV ONE (07:17)
[2020-08-17] MEDS ORDERED: Ketorolac 30 MG/ML SDV ONE (07:17)
[2020-08-17] MEDS ORDERED: Ondansetron 4 MG/2 ML SDV ONE (07:17)
[2020-08-17] MEDS ORDERED: ceFAZolin 1 GM Vial ONE (07:21)
[2020-08-17] MEDS ORDERED: Sodium Chloride 0.9% 20 ML ONE (07:21)
--- NOTE | 2020-08-17 07:42 | PCM.PREANE ---
Preanesthetic Assessment - Anesthesia/Transfusion/Family Hx Anesthesia History: Prior Anesthesia Without Reaction (prior c/s using labor epidural, no prior spinal) Other Type of Anesthesia Reaction Comment: states "they had to give me more anesthesia with my c/section" Family History of Anesthesia Reaction: No Transfusion History: No Prior Transfusion(s) Intubation History: Unknown - Review of Systems General: No Symptoms Pulmonary: No Symptoms Cardiovascular: No Symptoms Gastrointestinal: No Symptoms Neurological: No Symptoms Other: Reports: None - Physical Assessment NPO Status Date: 08/16/20 Height: 5 ft 0.25 in Weight: 73.936 kg ASA Class: 2 Mental Status: Alert & Oriented x3 Airway Class: Mallampati = 2 Dentition: Reports: Normal Dentition (prominant central maxillary incisor) ROM/Head Extension: Full Lungs: Clear to Auscultation, Normal Respiratory Effort Cardiovascular: Regular Rate, Regular Rhythm - Lab Values: Laboratory Last Values WBC 5.87 K/uL (4.0-11.0) 08/17/20 06:30 RBC 3.49 M/uL (4.30-5.90) L 08/17/20 06:30 Hgb 10.5 g/dL (12.0-16.0) L 08/17/20 06:30 Hct 32.4 % (36.0-46.0) L 08/17/20 06:30 MCV 92.8 fL (80.0-98.0) 08/17/20 06:30 MCH 30.1 pg (27.0-32.0) 08/17/20 06:30 MCHC 32.4 g/dL (31.0-37.0) 08/17/20 06:30 RDW Std Deviation 45.1 fl (28.0-62.0) 08/17/20 06:30 RDW Coeff of Karan 13 % (11.0-15.0) 08/17/20 06:30 Plt Count 159 K/uL (150-400) 08/17/20 06:30 MPV 12.40 fL (7.40-12.00) H 08/17/20 06:30 Nucleated RBC % 0.0 /100WBC 08/17/20 06:30 Nucleated RBCs # 0 K/uL 08/17/20 06:30 SARS-CoV-2 RNA (JAVIER) NEGATIVE (NEGATIVE) 11/30/20 06:10 - Allergies Allergies/Adverse Reactions: Allergies Allergy/AdvReac Type Severity Reaction Status Date / Time No Known Allergies Allergy Verified 08/11/20 08:20 - Anesthesia Plan Pre-Op Medication Ordered: Antacids - Acknowledgements Anesthesia Type Planned: Spinal Pt an Appropriate Candidate for the Planned Anesthesia: Yes Alternatives and Risks of Anesthesia Discussed w Pt/Guardian: Yes Pt/Guardian Understands and Agrees with Anesthesia Plan: Yes Additional Comments: scheduled repeat c section plan: spinal with intrathecal duramorph PreAnesthesia Questionnaire - Past Health History Medical/Surgical History: Denies Medical/Surgical History HEENT History: Reports: Other (See Below) Other HEENT History: wears glasses Cardiovascular History: Reports: None Respiratory History: Reports: None Gastrointestinal History: Reports: GERD Genitourinary History: Reports: None PL SQL 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: Reports: , Spontaneous Musculoskeletal History: Reports: None Neurological History: Reports: Headaches, Chronic Psychiatric History: Reports: None Endocrine/Metabolic History: Reports: None Hematologic History: Reports: None Immunologic History: Reports: None Oncologic (Cancer) History: Reports: None Dermatologic History: Reports: None - Infectious Disease History Infectious Disease History: Reports: Chicken Pox - Past Surgical History Head Surgeries/Procedures: Reports: None HEENT Surgical History: Reports: None Cardiovascular Surgical History: Reports: None Respiratory Surgical History: Reports: None GI Surgical History: Reports: Appendectomy Female Surgical History: Reports: Section, D&C Other Female Surgeries/Procedures: diagnostic laparoscopy Endocrine Surgical History: Reports: None Neurological Surgical History: Reports: None Musculoskeletal Surgical History: Reports: None Oncologic Surgical History: Reports: None Dermatological Surgical History: Reports: None - SUBSTANCE USE Tobacco Use Status *Q: Never Tobacco User Tobacco Use Within Last Twelve Months: Cigarettes, Vaping Second Hand Smoke Exposure: No Recreational Drug Use History: No - HOME MEDS Home Medications: Home Meds Calcium Carbonate [Tums] 1 tab.chew CHEW ASDIRECTED PRN 08/11/20 [History] Ferrous Sulfate [Iron] 2 tab PO DAILY 08/11/20 [History] Pnv No.95/Ferrous Fum/Folic AC [ Vitamin Tablet] 1 tab PO DAILY 08/11/20 [History] - CURRENT (IN HOUSE) MEDS Current Meds: Current Medications Oxytocin/Sodium Chloride (Oxytocin 30 Unit/500 Ml-Ns) 30 unit in 500 mls @ 250 mls/hr IV TITRATE [facility] Lactated Ringer's (Ringers, Lactated) 1,000 mls @ 500 mls/hr IV BOLUS [facility]IANNE Sodium Chloride (Saline Flush) 10 ml FLUSH ASDIRECTED PRN PRN Reason: Keep Vein Open Sodium Chloride (Saline Flush) 2.5 ml FLUSH ASDIRECTED PRN PRN Reason: Keep Vein Open Sodium Chloride (Normal Saline) 10 ml IV ASDIRECTED PRN PRN Reason: IV Use Discontinued Medications Cefazolin Sodium (Ancef) Confirm Administered Dose 2 gm .ROUTE .STK-MED ONE Stop: 08/17/20 07:22 Citric Acid/Sodium Citrate (Bicitra Solution) 30 ml PO ONETIME ONE Stop: 08/17/20 06:23 Cefazolin Sodium/Dextrose 2 gm (/ Premix) 50 mls @ 100 mls/hr IV ONETIME ONE Stop: 08/17/20 06:51 Sodium Chloride (Normal Saline) Confirm Administered Dose 20 mls @ as directed .ROUTE .STK-MED ONE Stop: 08/17/20 07:22 Ketorolac Tromethamine (Toradol) Confirm Administered Dose 30 mg .ROUTE .STK-MED ONE Stop: 08/17/20 07:18 Morphine Sulfate (Duramorph Pf) Confirm Administered Dose 10 mg .ROUTE .STK-MED ONE Stop: 08/17/20 07:15 Ondansetron HCl (Zofran) Confirm Administered Dose 4 mg .ROUTE .STK-MED ONE Stop: 08/17/20 07:18 Oxytocin (Pitocin) Confirm Administered Dose 20 unit .ROUTE .STK-MED ONE Stop: 08/17/20 07:18 Phenylephrine HCl (Kj-Synephrine) Confirm Administered Dose 10 mg .ROUTE .STK-MED ONE Stop: 08/17/20 07:18
[2020-08-17] MEDS ORDERED: fentaNYL 100 MCG/2 ML SDV IVPUSH PRN (07:43)
[2020-08-17] MEDS ORDERED: Nalbuphine 10 MG/1 ML Vial IVPUSH PRN (07:43)
[2020-08-17] MEDS ORDERED: Acetaminophen/oxyCODONE 325-5 MG Tab PO PRN ×2 (07:43→08:56)
[2020-08-17] MEDS ORDERED: Octyl 2-Cyanoacrylate 1 Tube ONE (08:38)
[2020-08-17] MEDS ORDERED: Ondansetron 4 MG/2 ML SDV IVPUSH PRN (08:56)
[2020-08-17] MEDS ORDERED: Bisacodyl 10 MG Supp RECTAL PRN (08:56)
[2020-08-17] MEDS ORDERED: Oxytocin 10 Units/1 ML SDV IM PRN (08:56)
[2020-08-17] MEDS ORDERED: Tranexamic Acid 1,000 MG in Sodium Chloride 0.9% 100 ML IV PRN (08:56)
[2020-08-17] MEDS ORDERED: diphenhydrAMINE 50 MG/ML SDV IVPUSH PRN (08:56)
[2020-08-17] MEDS ORDERED: Ibuprofen 800 MG Tab PO PRN (08:56)
[2020-08-17] MEDS ORDERED: Methylergonovine 0.2 MG/1 ML Amp IM PRN (08:56)
[2020-08-17] MEDS ORDERED: Lanolin 100% Cream 7 GM Tube TOP PRN (08:56)
[2020-08-17] MEDS ORDERED: Misoprostol 200 MCG Tab RECTAL PRN (08:56)
--- NOTE | 2020-08-17 08:56 | PCM.OPNOTE ---
- General Post-Op/Procedure Note Date of Surgery/Procedure: 08/17/20 Operative Procedure(s): repeat low transverse . Findings: liveborn female 05/27 weigth 3280 grams. Midanterior uterus densely adherent to anterior abdominal wall. bowel adherent to left side of uterus, unable to evaluate tubes and ovaries. Pre Op Diagnosis: 39 weeks previous , declines VTOL and known pelvic adhesions Post-Op Diagnosis: Same Anesthesia Technique: Spinal Primary Surgeon: Digna Oswald Secondary Surgeon: Viky Canales Anesthesia Provider: Dg Escalera Wood Molder: Miguel Johnson Role of Wood Molder: assist with known adhesions. Pathology: none Fluid Replacement, Intraop: 1,300 Output, Urine Amount: 200 EBL in mLs: 300 Complications: None Known Condition: Good
[2020-08-17] MEDS ORDERED: Oxytocin/Lactated Ringers 30 UNIT/500 ML BAG IV SCH (09:00)
--- NOTE | 2020-08-17 09:24 | PCM.POSTAN ---
POST ANESTHESIA ASSESSMENT - MENTAL STATUS Mental Status: Alert - RESPIRATORY Respiratory Status: Respiratory Rate WNL - CARDIOVASCULAR CV Status: Pulse Rate WNL - GASTROINTESTINAL GI Status: No Symptoms - POST OP HYDRATION Hydration Status: Adequate & Stable
--- NOTE | 2020-08-17 10:30 | OR ---
SURGEON: Digna Oswald M.D. DATE OF PROCEDURE: 08/17/2020 PREOPERATIVE DIAGNOSES: A 39-week intrauterine , previous delivery, known pelvic adhesions, declines vaginal trial of labor. POSTOPERATIVE DIAGNOSES: A 39-week intrauterine , previous delivery, known pelvic adhesions, declines vaginal trial of labor. PROCEDURE: Repeat low transverse section. PRIMARY SURGEON: Digna Oswald MD ENTERPRISE MANAGER: Viky Canales MD ANESTHESIA: Spinal. ESTIMATED BLOOD LOSS: Less than 300 mL. FINDINGS: Liveborn female, score of 9 and 9, weighing 3280 g. There was dense adhesion between the midanterior uterus and the abdominal wall. There was also adhesion of the small bowel to the left side of the uterus. The tubes and ovaries could not be identified. COMPLICATIONS: None known. DISPOSITION: Stable to Recovery. BRIEF HISTORY: This is a 30-year-old female. She is G4, P 1-0-2-1. She presents at 39 weeks' gestation for a repeat . She has declined vaginal trial of labor. She has known pelvic adhesions with a prior uterine perforation at the time of D and C for a miscarriage. At that time, laparoscopy was performed. There were dense adhesions between the uterus and the anterior abdominal wall. Also, there was bowel adhesion to the left side of the uterus. Knowing this information, I did request an family law legal assistant surgeon. Additionally, I did notify Dr. Gardner, who is a general surgeon, to be available on-call to the OR if needed, and I typed and crossed 2 units of blood and discussed the potential for additional surgical needs. If I am unable to access the baby without dissecting the adhesions, there is potential for hysterectomy. Understanding all this, she does desire to proceed with a repeat low transverse section with additional risks discussed including bleeding; infection; injury to bowel, bladder, blood vessels, ureters, or other organs; risk of thromboembolic event; and risk of anesthesia. Understanding all these risks, she does desire to proceed. DESCRIPTION OF PROCEDURE: With the patient in left tilt position, under adequate spinal analgesia, the abdomen was prepped with chlorhexidine and draped in usual fashion for abdominal surgery. SCDs were in place. Martinez catheter had been placed. An appropriate time-out was held. She had received 2 g of Ancef IV. After documentation of adequate analgesia with the abdomen appropriately prepped and draped, the prior cicatrix was excised with a scalpel and the incision was carried through the subcutaneous tissue to the fascia, which was scored transversely in the midline. The fascial incision was extended laterally using curved Mcmullen scissors and the fascia was elevated from the underlying rectus muscle and using sharp and blunt dissection. The rectus muscles were . Hemostats were used to elevate the peritoneum, and I carefully dissected through the peritoneum, which was somewhat dense, but entered the peritoneal cavity without difficulty. A finger was placed into the peritoneal cavity. There was the dense adhesion cephalad to the area where I had entered, but no adhesion inferiorly. Therefore, the incision was extended up to the level of the adhesion between the uterus and the peritoneum, and also with blunt dissection, a bladder blade was placed. I was unable to use the Dominic due to the dense adhesion. The visceral peritoneum over the lower uterine segment was incised to develop an adequate bladder flap. A transverse curvilinear incision was made over the lower uterine segment using a scalpel. A finger was used to enter the amniotic cavity. The incision was extended using blunt dissection with cephalad and caudad traction. The head was delivered via the uterine incision with fundal pressure. The infant was bulb suctioned by nose and mouth. Remainder of the infant's body was delivered, and after 1 minute, the cord was clamped x2 and cut. The infant was handed to the nurse in attendance at delivery. The infant was a liveborn female, score of 9 and 9, weighing 3280 g. Cord blood was collected for cord ABGs as well as routine cord blood sampling. Pitocin was initiated after delivery of the to assist with delivery of the placenta, which was delivered using anterior massage as I was unable to access the fundus of the uterus and also manual extraction. The cervix was opened with ring forceps. The uterus was cleaned with a dry laparotomy tape. The incision was closed with a running lock suture of 0 Polysorb followed by an imbricating layer of 0 Polysorb. I did inspect the adhesion on each side, there was a dense anterior adhesion. There were some filmy adhesions that could be lysed. However, I felt that if I tried to deal with the dense anterior adhesion, I could definitely end up with bleeding requiring a C-hyst; and therefore, I did not dissect through the anterior adhesion, which was approximately 1.5 cm in width cephalad to caudad and approximately 4 cm in width right to left or transversely. Rotating the uterus slightly, I could see the bowel adhesion to the left side of the uterus. It was not in any of my field of dissection and it was previously known to be there, and the patient was not having any bowel issues; therefore, I did not attempt to dissect the bowel adhesion. I finally inspected the uterine incision to confirm hemostasis, it was hemostatic. Therefore, the rectus muscle and peritoneum were loosely approximated in the midline using a running mattress suture of 0 Polysorb. The posterior aspect of the fascia was inspected and any areas of bleeding that were noted were cauterized. The fascial incision was closed with a running suture of 0 Polysorb. The subcutaneous tissue was irrigated, any areas of bleeding that were noted were cauterized. The skin was closed with a running subcuticular suture of 3-0 Monocryl followed by Dermabond. Final sponge, needle, and instrument counts were reported as correct. There were no known complications. The patient was transferred to Recovery in good condition. DALILA PEACOCK /[id number]
[2020-08-17] MEDS: Docusate Sodium 100 MG Cap PO SCH ×2 (11:38→22:09)
[2020-08-17] MEDS: Ferrous Sulfate 325 MG Tab PO SCH (11:38)
[2020-08-17] MEDS: Prenatal Multivitamin and Multimineral with Iron Tab PO SCH (11:38)
[2020-08-17] MEDS ORDERED: Acetaminophen 325 MG Tab PO ONE (13:32)
[2020-08-17] MEDS: Ketorolac 30 MG/ML SDV IVPUSH SCH ×2 (14:54→22:10)
[2020-08-18] MEDS: Ketorolac 30 MG/ML SDV IVPUSH SCH ×2 (05:18→11:49)
--- NOTE | 2020-08-18 07:40 | PCM48HPAN ---
Post Anesthesia Note - EVALUATION WITHIN 48HRS OF ANESTHETIC Vital Signs in Normal Range: Yes Patient Participated in Evaluation: Yes Respiratory Function Stable: Yes Airway Patent: Yes Cardiovascular Function Stable: Yes Hydration Status Stable: Yes (Taking PO well) Pain Control Satisfactory: Yes (Reports adequate pain control, 2-3/10) Nausea and Vomiting Control Satisfactory: Yes (Reports full relief of nausea, which she was experiencing yesterday) Mental Status Recovered: Yes Vital Signs: Last Vital Signs Temp 36.1 C 08/18/20 05:00 Pulse 65 08/18/20 07:00 Resp 18 08/18/20 07:00 BP 93/53 L 08/18/20 05:00 Pulse Ox 97 08/18/20 07:00 - COMMENTS/OBSERVATIONS Free Text/Narrative:: Pt reports full return of strength and sensation to BLE, ambulating without difficulty.
--- NOTE | 2020-08-18 08:13 | PCM.PNPP ---
- General Info Date of Service: 08/18/20 Admission Dx/Problem (Free Text): Reviewed operative findings with patient, lower uterine segment well healed. Adhesions present. She is doing well, pain controlled, baby latched well. She would like to go home today if possible as it is her other child's birthday and she denies any complaints. Functional Status: Reports: Pain Controlled - Review of Systems General: Reports: No Symptoms HEENT: Reports: No Symptoms Pulmonary: Reports: No Symptoms Cardiovascular: Reports: No Symptoms Gastrointestinal: Reports: No Symptoms Genitourinary: Reports: No Symptoms Musculoskeletal: Reports: No Symptoms Skin: Reports: No Symptoms Neurological: Reports: No Symptoms Psychiatric: Reports: No Symptoms - General Info Date of Service: 08/18/20 - Patient Data Vital Signs - Most Recent: Last Vital Signs Temp 36.1 C 08/18/20 05:00 Pulse 65 08/18/20 07:00 Resp 18 08/18/20 07:00 BP 93/53 L 08/18/20 05:00 Pulse Ox 97 08/18/20 07:00 Weight - Most Recent: 73.936 kg I&O - Last 24 Hours: Intake & Output 08/17/20 08/18/20 08/18/20 22:59 06:59 14:59 Intake Total 1000 Output Total 625 1300 Balance -625 -300 Lab Results - Last 24 Hours: Laboratory Results - last 24 hr 08/17/20 08/18/20 Range/Units 08:17 06:49 Hgb 10.6 L (12.0-16.0) g/dL Hct 32.2 L (36.0-46.0) % Cord ABG pH TNP Cord ABG Base Excess TNP Cord VBG pH 7.303 (7.25-7.45) Cord VBG Base Excess -4 (-10--2) Med Orders - Current: Current Medications Bisacodyl (Dulcolax) 10 mg RECTAL ONETIME PRN PRN Reason: Constipation Diphenhydramine HCl (Benadryl) 25 mg IVPUSH Q6H PRN PRN Reason: Itching or Nausea Docusate Sodium (Colace) 100 mg PO BID MARIANNE Last Admin: 08/17/20 22:09 Dose: 100 mg Documented by: Emollient Ointment (Lansinoh Hpa) 0 gm TOP ASDIRECTED PRN PRN Reason: Sore Nipples Ferrous Sulfate (Ferrous Sulfate) 650 mg PO DAILY [facility] Last Admin: 08/17/20 11:38 Dose: Not Given Documented by: Lactated Ringer's (Ringers, Lactated) 1,000 mls @ 125 mls/hr IV ASDIRECTED [facility] Last Admin: 08/17/20 09:52 Dose: 125 mls/hr Documented by: Oxytocin/Lactated Ringer's (Pitocin In Lr 30 Units/500 Ml) 30 unit in 500 mls @ 999 mls/hr IV TITRATE [facility]; Protocol Tranexamic Acid 1,000 mg/ (Sodium Chloride) 110 mls @ 660 mls/hr IV ONETIME PRN PRN Reason: Bleeding Ibuprofen (Motrin) 800 mg PO Q8H PRN PRN Reason: mild pain or fever Ketorolac Tromethamine (Toradol) 30 mg IVPUSH Q6H [facility] Stop: 08/18/20 09:01 Last Admin: 08/18/20 05:18 Dose: 30 mg Documented by: Methylergonovine Maleate (Methergine) 0.2 mg IM ONETIME PRN PRN Reason: Excessive Vaginal Bleeding Misoprostol (Cytotec) 1,000 mcg RECTAL ONETIME PRN PRN Reason: excessive bleeding Ondansetron HCl (Zofran) 4 mg IVPUSH Q4H PRN PRN Reason: Nausea/Vomiting Oxycodone/Acetaminophen (Percocet 325-5 Mg) 1 tab PO ONETIME PRN PRN Reason: Pain (moderate 4-6) Oxycodone/Acetaminophen (Percocet 325-5 Mg) 1 tab PO Q4H PRN PRN Reason: Pain (moderate 4-6) Oxycodone/Acetaminophen (Percocet 325-5 Mg) 2 tab PO Q4H PRN PRN Reason: Pain (moderate 4-6) Oxytocin (Pitocin) 10 unit IM ASDIRECTED PRN PRN Reason: Excessive Vaginal Bleeding Prenat Multivit/Migrant Leader/Iron/Folic Ac ( Mtr) 1 each PO DAILY [facility] Last Admin: 08/17/20 11:38 Dose: Not Given Documented by: Discontinued Medications Acetaminophen (Tylenol) 650 mg PO NOW ONE Stop: 08/17/20 13:33 Last Admin: 08/17/20 13:40 Dose: 650 mg Documented by: Cefazolin Sodium (Ancef) Confirm Administered Dose 2 gm .ROUTE .STK-MED ONE Stop: 08/17/20 07:22 Citric Acid/Sodium Citrate (Bicitra Solution) 30 ml PO ONETIME ONE Stop: 08/17/20 06:23 Fentanyl (Sublimaze) 50 mcg IVPUSH Q5M PRN PRN Reason: Pain (severe 7-10) Stop: 08/18/20 07:43 Oxytocin/Sodium Chloride (Oxytocin 30 Unit/500 Ml-Ns) 30 unit in 500 mls @ 250 mls/hr IV TITRATE MARIANNE Cefazolin Sodium/Dextrose 2 gm (/ Premix) 50 mls @ 100 mls/hr IV ONETIME ONE Stop: 08/17/20 06:51 Lactated Ringer's (Ringers, Lactated) 1,000 mls @ 500 mls/hr IV BOLUS MARIANNE Sodium Chloride (Normal Saline) Confirm Administered Dose 20 mls @ as directed .ROUTE .STK-MED ONE Stop: 08/17/20 07:22 Ketorolac Tromethamine (Toradol) Confirm Administered Dose 30 mg .ROUTE .STK-MED ONE Stop: 08/17/20 07:18 Morphine Sulfate (Duramorph Pf) Confirm Administered Dose 10 mg .ROUTE .STK-MED ONE Stop: 08/17/20 07:15 Octyl Cyanoacrylate (Dermabond Advance) Confirm Administered Dose 1 applic .ROUTE .STK-MED ONE Stop: 08/17/20 08:39 Ondansetron HCl (Zofran) Confirm Administered Dose 4 mg .ROUTE .STK-MED ONE Stop: 08/17/20 07:18 Oxytocin (Pitocin) Confirm Administered Dose 20 unit .ROUTE .STK-MED ONE Stop: 08/17/20 07:18 Phenylephrine HCl (Kj-Synephrine) Confirm Administered Dose 10 mg .ROUTE .STK- MED ONE Stop: 08/17/20 07:18 Sodium Chloride (Saline Flush) 10 ml FLUSH ASDIRECTED PRN PRN Reason: Keep Vein Open Sodium Chloride (Saline Flush) 2.5 ml FLUSH ASDIRECTED PRN PRN Reason: Keep Vein Open Sodium Chloride (Normal Saline) 10 ml IV ASDIRECTED PRN PRN Reason: IV Use - Infant Interaction Infant Disposition, : Hanna in Room with Family Interaction: Holding Infant Feeding: Breastfed Infant; Nursed Well Support Person: Friend - Recovery Exam Fundal Tone: Firm Fundal Level: 1 Fingerbreadths Below Umbilicus Fundal Placement: Midline Lochia Amount: Scant Lochia Color: Rubra/Red Perineum Description: Intact, Minimal Bruising/Swelling Episiotomy/Laceration: None Bladder Status: Indwelling Catheter in Place Urinary Elimination: Indwelling Catheter - Exam General: Alert, Oriented Neck: Supple Lungs: Normal Respiratory Effort GI/Abdominal Exam: Soft, Non-Tender, No Distention Extremities: Normal Range of Motion, Non-Tender, No Pedal Edema Skin: Warm, Dry, Intact Wound/Incisions: Dressing Dry and Intact Neurological: No New Focal Deficit Psy/Mental Status: Alert - Problem List & Annotations (1) Previous delivery, delivered SNOMED Code(s): 085725304, 177420182 Code(s): O34.219 - MATERNAL CARE FOR UNSP TYPE SCAR FROM PREVIOUS DEL Status: Acute Current Visit: Yes (2) delivery delivered SNOMED Code(s): 911919151 Code(s): O82 - ENCOUNTER FOR DELIVERY WITHOUT INDICATION Status: Acute Current Visit: Yes (3) Pelvic adhesions SNOMED Code(s): 012955660 Code(s): N73.6 - FEMALE PELVIC PERITONEAL ADHESIONS (POSTINFECTIVE) Status: Acute Current Visit: Yes - Problem List Review Problem List Initiated/Reviewed/Updated: Yes - My Orders Last 24 Hours: My Active Orders 08/17/20 08:56 Notify Provider Vital Signs [RC] ASDIRECTED Acetaminophen/oxyCODONE [Percocet 325-5 MG] 1 tab PO Q4H PRN Acetaminophen/oxyCODONE [Percocet 325-5 MG] 2 tab PO Q4H PRN Ibuprofen [Motrin] 800 mg PO Q8H PRN Lanolin [Lansinoh HPA] See Dose Instructions TOP ASDIRECTED PRN Methylergonovine [Methergine] 0.2 mg IM ONETIME PRN Ondansetron [Zofran] 4 mg IVPUSH Q4H PRN Oxytocin [Pitocin] 10 unit IM ASDIRECTED PRN Tranexamic Acid [Cyklokapron] 1,000 mg Sodium Chloride 0.9% [Normal Saline] 100 ml IV ONETIME bisacodyL [Dulcolax] 10 mg RECTAL ONETIME PRN diphenhydrAMINE [Benadryl] 25 mg IVPUSH Q6H PRN miSOPROStoL [Cytotec] 1,000 mcg RECTAL ONETIME PRN Abdominal Binder [OM.PC] Urgent Resuscitation Status Routine 08/17/20 08:57 Patient Status [ADT] Routine Ambulate [RC] PER UNIT ROUTINE Antiembolic Devices [RC] PER UNIT ROUTINE Communication Order [RC] PER UNIT ROUTINE Communication Order [RC] PER UNIT ROUTINE Communication Order [RC] Per Unit Routine Intake and Output [RC] Q12H May Shower [RC] ASDIRECTED Notify Provider Intake and Out [RC] ASDIRECTED RT Incentive Spirometry [RC] Q2HWA Assess Lochia [WOMSER] Per Unit Routine Assess Uterine Involution [WOMSER] Per Unit Routine Breast Pump [WOMSER] Per Unit Routine Peripheral IV Discontinue [OM.PC] Routine Sequential Compression Device [OM.PC] Per Unit Routine 08/17/20 09:00 Docusate Sodium [Colace] 100 mg PO BID Ferrous Sulfate 650 mg PO DAILY Ketorolac [Toradol] 30 mg IVPUSH Q6H Lactated Ringers [Ringers, Lactated] 1,000 ml IV ASDIRECTED Oxytocin/Lactated Ringers [Pitocin in LR 30 Units/500 ML] 30 unit in 500 ml IV TITRATE Vit/FA/Fe Fumarate/Se [ MTR] 1 each PO DAILY 08/17/20 Lunch Regular Diet [DIET] 08/18/20 08:06 Ready for Discharge [RC] PER UNIT ROUTINE - Assessment Assessment:: POD#1 after repeat low transverse with known dense pelvic adhesions. Stable, tolerating diet, ambulating, requests discharge today. - Plan Plan:: Discharge instructions reviewed, operative findings reviewed. Nursing staff will assess for discharge at around 6 pm.
[2020-08-18] MEDS: Docusate Sodium 100 MG Cap PO SCH (09:51)
[2020-08-18] MEDS: Prenatal Multivitamin and Multimineral with Iron Tab PO SCH (09:51)
[2020-08-18] MEDS: Ferrous Sulfate 325 MG Tab PO SCH (09:52)
[2020-08-18 11:04] VITALS: BP 99/64; PULSE 67
[2020-08-18] MEDS ORDERED: Ketorolac 30 MG/ML SDV IVPUSH PRN (11:28)
[2020-08-18] MEDS: Acetaminophen/oxyCODONE 325-5 MG Tab PO PRN ×2 (15:39→18:37)
== END 2020-08-18 19:05 | disposition home or self-care (01) | DRG 788 ==
LOC: MW.OB 05:11
PROVIDERS: ADMIT Obstetrics & Gynecology; ATTEND Obstetrics & Gynecology
PROC: 10D00Z1 Extraction of Products of Conception, Low, Open Approach (ICD-10-PCS; principal; 2020-08-17)
DX: O34.211 Maternal care for low transverse scar from previous cesarean delivery (principal); N73.6 Female pelvic peritoneal adhesions (postinfective); Z3A.39 39 weeks gestation of pregnancy; Z37.0 Single live birth; O99.891 Other specified diseases and conditions complicating pregnancy; Z20.828 Contact with and (suspected) exposure to other viral communicable diseases
CPT/HCPCS: 36415; 59025; 82803; 85014; 85018; 85027; 86592; 86850; 86900; 86901; A9270-GY; J0690; J1885; J2270; J2370; J2405; J2590; J7120; U0002